=== PATIENT | male | born 1965 | race Caucasian/White ===

== ENCOUNTER 2019-01-28 09:06 | Day surgery (SDC) | payer OTHER ==
[~2019-01-28] VITALS: Ht 175.3 cm; Wt 114.9 kg
[~2019-01-28 09:06] MED LIST: ULTRAM 50MG TAB50 MG PO; ZOFRAN8 MG PO
[2019-01-28 09:42] VITALS: BP 129/91; PULSE 93; TEMP 98.2
[2019-01-28] MEDS ORDERED: PRINIVIL20 MG PO (09:57)
[2019-01-28] MEDS ORDERED: ALEVE 220MG220 MG PO (09:57)
[2019-01-28] MEDS ORDERED: LIPITOR20 MG PO (09:57)
--- NOTE | 2019-01-28 09:58 | NUR ---
TO BAY 8 - CALL LIGHT IN REACH AT BEDSIDE.
[2019-01-28 11:00] VITALS: BP 106/78; PULSE 77; TEMP 98.2
[2019-01-28 11:15] VITALS: BP 113/78; PULSE 66
[2019-01-28 11:30] VITALS: BP 110/93; PULSE 80
--- NOTE | 2019-01-28 11:50 | NUR ---
Pt tolerated water, denied wanting to eat. VSS-see flowsheet. Dr Brownlee in to visit with and pt post procedure. IV removed, dressing applied. Pt dressed for dc. Discharge teaching completed, pt and verbalized understanding. Taken via wheelchair to private vehicle for dc home with to drive.
== END 2019-01-28 11:50 | disposition home or self-care (01) ==
LOC: SDCO 09:06
DX: Z12.11 Encounter for screening for malignant neoplasm of colon (principal); K63.5 Polyp of colon; I10 Essential (primary) hypertension; E78.00 Pure hypercholesterolemia, unspecified; J45.909 Unspecified asthma, uncomplicated; G47.33 Obstructive sleep apnea (adult) (pediatric); F41.9 Anxiety disorder, unspecified; Z90.89 Acquired absence of other organs
CPT/HCPCS: J2704; J7030

== ENCOUNTER → 2020-03-31 | Outpatient (CLI) | payer OTHER ==
[~2020-03-31] MED LIST changes: +ALEVE 220MG220 MG PO; +LIPITOR20 MG PO; +PRINIVIL20 MG PO
[2020-03-31 11:20] LABS: BASO % 0.4 % (0.0-2.0); EOS # 0.2 (0.0-0.7); EOS % 2.3 % (0-4.0); GRAN % 72.4 % (42.2-75.2); HEMATOCRIT 42.9 % (42.0-52.0); HEMOGLOBIN 14.4 g/dl (13.5-18.0); LYMPH # 1.5 (1.2-3.4); LYMPH % 15.7 % (20.0-51.0); MEAN CELL VOLUME 86 fl (80.0-100.0); MEAN CORPUSCULAR HEMOGLOBIN 29 pg (27.0-31.0); MEAN CORPUSCULAR HGB CONC 34 g/dl (33.0-37.0); MEAN PLATELET VOLUME 9.6 fl (7.4-10.4); MONO # 0.9 (0.1-0.6); MONO % 8.9 % (1.7-9.3); PLATELET COUNT 354 K/mm3 (130-400); RED BLOOD COUNT 5.01 M/mm3 (4.20-5.60); REDCELL DISTRIBUTION WIDTH-CV 11.8 % (11.5-14.5)
[2020-03-31 11:30] LABS: ALANINE AMINOTRANSFERASE 27 U/L (4-49); ALBUMIN 3.9 gm/dL (3.5-5.0); ALKALINE PHOSPHATASE 89 U/L (50-136); ANION GAP 8 mmol/L (7-16); AST,SGOT 23 U/L (15-37); BILIRUBIN,TOTAL 0.7 mg/dL (0.0-1.0); BLOOD UREA NITROGEN 8 mg/dL (9-20); CALCIUM 8.7 mg/dL (8.4-10.2); CARBON DIOXIDE 27 mmol/L (22-30); CHLORIDE 101 mmol/L (98-107); CREATININE, serum 0.79 (0.66-1.25); GLUCOSE 99 mg/dL (74-106); POTASSIUM 4.4 mmol/L (3.4-5.0); SODIUM 136 mmol/L (137-145); TOTAL PROTEIN 6.4 gm/dL (6.4-8.2)
[2020-03-31 11:44] LABS: ERYTHROCYTE SEDIMENTATION RATE 5 mm/hr (0-30)
[2020-03-31 11:47] LABS: TROPONIN-I < 0.012 ng/mL (0.000-0.035)
== END ==
LOC: COL.LAB 10:42
PROVIDERS: Family Medicine
DX: R07.9 Chest pain, unspecified (principal)